=== PATIENT | male | born 1970 | race Caucasian/White ===

== ENCOUNTER 2019-03-17 03:14 | Inpatient (IN) | payer MEDICAID ==
[2019-03-17] MEDS ORDERED: Sodium Chloride 0.9% 10 ML Syringe FLUSH PRN (03:21)
[2019-03-17] MEDS ORDERED: Polyethylene Glycol 3350 Powder 17 GM Packet PO PRN (03:21)
[2019-03-17] MEDS ORDERED: Ondansetron 4 MG/2 ML SDV IV PRN (03:21)
[2019-03-17] MEDS ORDERED: Acetaminophen 325 MG Tab PO PRN (03:21)
--- NOTE | 2019-03-17 03:27 | PCM.HP ---
H&P History of Present Illness - General Date of Service: 03/17/19 Admit Problem/Dx: Admission Diagnosis/Problem Admission Diagnosis/Problem Atrial fibrillation Source of Information: Patient, Provider, RN Notes Reviewed History Limitations: Reports: No Limitations - History of Present Illness Initial Comments - Free Text/Narative: Mr. Del Rosario is a 48-year-old gentleman who was admitted as a direct admission from the emergency department in [place], with atrial fibrillation and rapid ventricular response. He was feeling well until about 2 days ago when he began to develop difficulty with breathing, shortness of breath and cough. He does have a known history of asthma and was previously hospitalized in [place] approximately 2 years ago for asthma exacerbation. He is not had fever, chills, or purulent sputum. He has a history of environmental allergies and stop taking his allergy shots a few years ago because of a severe allergic reaction. He was unable to sleep on the evening prior to admission because of shortness of breath and cough. He presented to the emergency department in [place] last night , because of symptoms of shortness of breath. On evaluation he was found to have atrial fibrillation with rapid ventricular response. He said one previous episode of atrial fibrillation occurring during his hospitalization 2 years ago. Since that hospitalization he is taken diltiazem Fleccanide on a daily basis. His main symptoms over the past 2 days of binge shortness of breath and he was unaware that his heart was beating rapidly or irregularly. He is also been told he has probable sleep apnea but has not yet had a sleep study performed. Hypertension was diagnosed 2 years ago and when he is monitored at home recently reports blood pressure has been under good control. He denies any symptoms of chest pain or pressure. Shortness of breath and cough have significantly improved after treatment in [place] with nebulizer and Solu- Medrol. - Related Data Allergies/Adverse Reactions: Allergies Allergy/AdvReac Type Severity Reaction Status Date / Time No Known Allergies Allergy Verified 03/17/19 04:00 Home Medications: Home Meds Albuterol [Ventolin HFA] 2 puff INH Q4H PRN 03/17/19 [History] Aspirin [Aspirin EC] 325 mg PO DAILY 03/17/19 [History] Flecainide [Tambocor] 150 mg PO Q12H 03/17/19 [History] Omeprazole 20 mg PO DAILY 03/17/19 [History] dilTIAZem HCl [Diltiazem ER] 360 mg PO DAILY 03/17/19 [History] H&P Review of Systems - Review of Systems: Review Of Systems: See Below General: Denies: Fever, Chills, Weakness HEENT: Reports: No Symptoms Pulmonary: Reports: Shortness of Breath, Wheezing, Cough. Denies: Pleuritic Chest Pain, Sputum, Hemoptysis Cardiovascular: Reports: Dyspnea on Exertion. Denies: Chest Pain, Palpitations , Orthopnea, PND, Edema, Lightheadedness, Syncope Gastrointestinal: Reports: No Symptoms Genitourinary: Reports: No Symptoms Musculoskeletal: Reports: No Symptoms Skin: Reports: No Symptoms Psychiatric: Reports: No Symptoms Neurological: Reports: No Symptoms Hematologic/Lymphatic: Reports: No Symptoms Immunologic: Reports: No Symptoms Exam - Exam Exam: See Below - Exam Quality Assessment: DVT Prophylaxis General: Alert, Oriented, Cooperative, Mild Distress HEENT: Conjunctiva Clear, Hearing Intact, Mucosa Moist & [place], Normal Nasal Septum, Posterior Pharynx Clear, Pupils Equal Neck: Supple, Trachea Midline, +2 Carotid Pulse wo Bruit Lungs: Decreased Breath Sounds, Wheezing. No: Crackles, Rales, Rhonchi, Rub Cardiovascular: Regular Rate, Normal S1, Normal S2, Irregular Rhythm. No: Systolic Murmur, Diastolic Murmur GI/Abdominal Exam: Soft, Non-Tender, No Organomegaly, No Distention Back Exam: Normal Inspection, Full Range of Motion Extremities: Non-Tender, No Pedal Edema Skin: Warm, Dry, Intact Neurological: Cranial Nerves Intact, Strength Equal Bilateral, Normal Speech, Normal Tone, Sensation Intact Neuro Extensive - Mental Status: Alert, Oriented x3, Normal Mood/Affect, Normal Cognition, Memory Intact *Q Meaningful Use (ADM) - VTE Risk Assess *Q Each Risk Factor Represents 1 Point: Age 41 - 59 years, Obesity ( BMI > 25 kg/m2 ) Total Score 1 Point Risk Factors: 2 Each Risk Factor Represents 2 Points: None Total Score 2 Point Risk Factors: 0 Each Risk Factor Represents 3 Points: None Total Score 3 Point Risk Factors: 0 Each Risk Factor Represents 5 Points: None Total Score 5 Point Risk Factors: 0 Venous Thromboembolism Risk Factor Score *Q: 2 Problem List Initiated/Reviewed/Updated: Yes Orders Last 24hrs: Active Orders 24 hr Category Date Time Status Patient Status [ADT] Routine ADT 03/17/19 03:21 Ordered Ambulate [RC] QID Care 03/17/19 03:21 Ordered Cardiac Monitoring [RC] .As Directed Care 03/17/19 03:23 Ordered Height and Weight [RC] DAILY Care 03/17/19 03:21 Ordered Intake and Output [RC] QSHIFT Care 03/17/19 03:21 Ordered Notify Provider Vital Signs [RC] ASDIRECTED Care 03/17/19 03:21 Ordered Oxygen Therapy [RC] PRN Care 03/17/19 03:21 Ordered Peripheral IV Care [RC] . DIRECTED Care 03/17/19 03:24 Ordered Pulse Oximetry [RC] CONTINUOUS Care 03/17/19 03:23 Ordered RT Aerosol Therapy [RC] ASDIRECTED Care 03/17/19 03:24 Ordered Up ad Tiarra [RC] ASDIRECTED Care 03/17/19 03:21 Ordered Up to Chair [RC] QID Care 03/17/19 03:21 Ordered VTE/DVT Education [RC] Per Unit Routine Care 03/17/19 03:21 Ordered Vital Signs [RC] Q4H Care 03/17/19 03:21 Ordered Nothing per Oral Now Diet [DIET] Diet 03/17/19 Breakfast Ordered Echo Comp wo Cont [US] Urgent Exams 03/17/19 08:00 Ordered BASIC METABOLIC PANEL,BMP [CHEM] AM Lab 03/17/19 05:11 Ordered CBC WITH AUTO DIFF [HEME] AM Lab 03/17/19 05:11 Ordered MAGNESIUM [CHEM] AM Lab 03/17/19 05:11 Ordered Acetaminophen [Tylenol] Med 03/17/19 03:21 Ordered 650 mg PO Q4H PRN Albuterol [Proventil Neb Soln] Med 03/17/19 03:21 Ordered 2.5 mg NEB Q4H PRN Diltiazem 125MG in NS @ 5 MG/HR(125ml) Med 03/17/19 03:30 Ordered Diltiazem 125 mg Sodium Chloride 0.9% [Normal Saline] 100 ml IV TITRATE Enoxaparin [Lovenox] Med 03/17/19 03:30 Ordered 40 mg SUBCUT DAILY Ondansetron [Zofran] Med 03/17/19 03:21 Ordered 4 mg IV Q4H PRN Polyethylene Glycol 3350 [MiraLAX] Med 03/17/19 03:21 Ordered 17 gm PO DAILY PRN Sodium Chloride 0.9% @ 125 MLS/HR (1000ml) Med 03/17/19 03:30 Ordered Sodium Chloride 0.9% [Normal Saline] 1,000 ml IV ASDIRECTED Sodium Chloride 0.9% [Saline Flush] Med 03/17/19 03:21 Ordered 10 ml FLUSH ASDIRECTED PRN Peripheral IV Insertion Adult [OM.PC] Routine Oth 03/17/19 03:21 Ordered Resuscitation Status Routine Resus Stat 03/17/19 03:21 Ordered Assessment/Plan Comment:: ASSESSMENT AND PLAN ATRIAL FIBRILLATION WITH RAPID VENTRICULAR RESPONSE-specific duration unknown, although likely that he is experienced onset over the past few days with progressive respiratory compromise. When he presented to the emergency department in [place] he was unaware that his heart rate was elevated or he was experiencing irregular rhythm. I suspect elevated rate previously related to respiratory compromise, now under better control with IV diltiazem. Calculated [id number] score is 1. -Continue daily aspirin -Continue oral diltiazem -Continuous infusion of IV diltiazem -Plan to transition to further oral rate controlling meds in a.m., consider beta rodrick therapy -Echocardiogram in a.m. ASTHMA EXACERBATION-likely secondary to environmental allergies, no evidence of underlying infection. Improved following nebulizer therapy given in [place]. -Nebulized albuterol as needed -Solu-Medrol 40 mg IV every 6 hours HYPERTENSION-blood pressures been elevated while in the emergency department and on admission. Recent history of good blood pressure control and monitored at home -Continue to monitor during hospitalization -Continue oral diltiazem PROBABLE SLEEP APNEA -Plan for outpatient monitored sleep study MAINTENANCE ISSUES -DVT prophylaxis; Lovenox 3 mg subcutaneous daily -GI prophylaxis; continue outpatient PPI therapy -Gates catheter; not indicated -Nutrition; 2 g sodium diet -Nicotine dependence; not required CODE STATUS-FULL CODE ADMISSION STATUS-patient will be admitted to inpatient status, expect at least a 2 night hospital stay for evaluation and management of problems as outlined above. At the time of this admission I do not reasonably expected evaluation and management of this problem will require more than a 96 hour hospital stay. DISPOSITION-anticipate discharge to home after the hospital stay. PRIMARY CARE PROVIDER-he recently moved to this area and has not established care with a primary care provider.
[2019-03-17] MEDS ORDERED: Enoxaparin 40 MG/0.4 ML Syringe SUBCUT SCH ×2 (03:30→21:00)
[2019-03-17] MEDS ORDERED: Sodium Chloride 0.9% 1,000 ML IV SCH (03:30)
[2019-03-17] MEDS ORDERED: Diltiazem 125 MG in Sodium Chloride 0.9% 100 ML IV SCH (03:30)
[2019-03-17] MEDS: methylPREDNISolone Sodium Succinate 40 MG/1 ML SDV IVPUSH SCH ×4 (04:20→21:17)
[2019-03-17] MEDS: Albuterol 0.083% 2.5 MG/3 ML Neb Soln NEB PRN ×5 (04:22→22:11)
[2019-03-17] MEDS: Flecainide 50 MG Tab PO SCH ×2 (10:04→21:11)
[2019-03-17] MEDS: Aspirin 325 MG Tab.EC PO SCH (10:04)
[2019-03-17] MEDS: Diltiazem 180 MG Cap.CD PO SCH (10:05)
[2019-03-17] MEDS: Pantoprazole 40 MG Tab.CR PO SCH (10:05)
[2019-03-18] MEDS: methylPREDNISolone Sodium Succinate 40 MG/1 ML SDV IVPUSH SCH ×2 (04:28→10:15)
[2019-03-18] MEDS: Pantoprazole 40 MG Tab.CR PO SCH (07:28)
[2019-03-18] MEDS: Albuterol 0.083% 2.5 MG/3 ML Neb Soln NEB PRN (07:30)
[2019-03-18] MEDS: Aspirin 325 MG Tab.EC PO SCH (08:08)
[2019-03-18] MEDS: Diltiazem 180 MG Cap.CD PO SCH (08:08)
[2019-03-18] MEDS: Flecainide 50 MG Tab PO SCH (08:08)
--- NOTE | 2019-03-18 10:02 | PCM.DCSUM1 ---
Discharge Summary - Hospital Course Brief History: Mr. Del Rosario is a 48-year-old gentleman who was admitted as a direct admission from the emergency department in [place] with shortness of breath secondary to asthma exacerbation and underlying viral upper respiratory tract infection as well as atrial fibrillation with rapid ventricular response. Diagnosis: Stroke: No - Discharge Data Discharge Date: 03/18/19 Discharge Disposition: Home, Self-Care 01 Condition: Fair - Discharge Diagnosis/Problem(s) (1) Hypoxia SNOMED Code(s): 662060562 ICD Code: R09.02 - HYPOXEMIA Status: Acute Current Visit: Yes (2) Asthma with acute exacerbation SNOMED Code(s): 995219065 ICD Code: J45.901 - UNSPECIFIED ASTHMA WITH (ACUTE) EXACERBATION Status: Acute Current Visit: Yes (3) Viral upper respiratory infection SNOMED Code(s): 323710750 ICD Code: J06.9 - ACUTE UPPER RESPIRATORY INFECTION, UNSPECIFIED Status: Acute Current Visit: Yes (4) Atrial fibrillation with RVR SNOMED Code(s): 360777452964018 ICD Code: I48.91 - UNSPECIFIED ATRIAL FIBRILLATION Status: Acute Current Visit: Yes - Patient Summary/Data Hospital Course: Mr. Del Rosario is a 48-year-old gentleman who was admitted as a direct admission from the emergency department in [place], with atrial fibrillation and rapid ventricular response. He was feeling well until about 2 days ago when he began to develop difficulty with breathing, shortness of breath and cough. He does have a known history of asthma and was previously hospitalized in [place] approximately 2 years ago for asthma exacerbation. He is not had fever, chills, or purulent sputum. He has a history of environmental allergies and stop taking his allergy shots a few years ago because of a severe allergic reaction. He was unable to sleep on the evening prior to admission because of shortness of breath and cough. He presented to the emergency department in [place] last night , because of symptoms of shortness of breath. On evaluation he was found to have atrial fibrillation with rapid ventricular response. He said one previous episode of atrial fibrillation occurring during his hospitalization 2 years ago. Since that hospitalization he is taken diltiazem Fleccanide on a daily basis. His main symptoms over the past 2 days of binge shortness of breath and he was unaware that his heart was beating rapidly or irregularly. He is also been told he has probable sleep apnea but has not yet had a sleep study performed. Hypertension was diagnosed 2 years ago and when he is monitored at home recently reports blood pressure has been under good control. He denies any symptoms of chest pain or pressure. Shortness of breath and cough have significantly improved after treatment in [place] with nebulizer and Solu- Medrol. On admission he was continued on nebulizer therapy as well as IV Solu-Medrol. It became clear after admission that his elevated heart rate was likely secondary to hypoxia and respiratory compromise. He was continued on the IV diltiazem until later in the morning and was then placed back on his usual dose of oral diltiazem as well as flecainide. His heart rate remained under good control during the duration of his hospital stay. It was unclear as to when the atrial fibrillation and started and I think it's very likely that he has been in this for some time, with the increased rate related to respiratory distress. He will be discharged to home on his usual medications for the atrial fibrillation. A [id number] was calculated for him and the results was a score of 1. He will remain on aspirin 325 mg daily, but was not started on any other anticoagulation. He has inhalers to use at home for management of his asthma and will be discharged on prednisone 40 mg daily for an additional 3 days. It was felt likely that his asthma exacerbation was caused by a viral upper respiratory tract infection. Follow-up appointment will be arranged with primary care and he should also be scheduled for a cardiology consult for ongoing management of his atrial fibrillation. Echocardiogram was obtained and showed preserved left ventricular function, left ventricular hypertrophy, and diastolic dysfunction. He was noted to have evidence of sleep apnea while monitored during hospitalization and I have recommended that he discuss this with primary care provider and have an outpatient sleep study scheduled. Activity will be as tolerated and he will resume his usual diet. - Patient Instructions Diet: Low Sodium Activity: As Tolerated Other/Special Instructions: Please schedule follow-up appointment with primary care provider within one week. Please schedule cardiology consult for follow-up of atrial fibrillation. Patient has been instructed that he needs to discuss with primary care provider his sleep apnea and get an outpatient sleep study scheduled. - Discharge Plan *PRESCRIPTION DRUG MONITORING PROGRAM REVIEWED*: Not Applicable *COPY OF PRESCRIPTION DRUG MONITORING REPORT IN PATIENT PRECIOUS: Not Applicable Prescriptions/Med Rec: Diltiazem HCl [Diltiazem 24Hr Cd] 180 mg PO DAILY #60 cap.er.24h Flecainide [Tambocor] 50 mg PO Q12H #180 tab predniSONE [Prednisone] 20 mg PO DAILY #6 tablet Home Medications: Home Meds Albuterol [Ventolin HFA] 2 puff INH Q4H PRN 03/17/19 [History] Aspirin [Aspirin EC] 325 mg PO DAILY 03/17/19 [History] Flecainide [Tambocor] 150 mg PO Q12H 03/17/19 [History] Omeprazole 20 mg PO DAILY 03/17/19 [History] dilTIAZem HCl [Diltiazem 24Hr ER (LA)] 360 mg PO DAILY 03/17/19 [History] Diltiazem HCl [Diltiazem 24Hr Cd] 180 mg PO DAILY #60 cap.er.24h 03/18/19 [Rx] Flecainide [Tambocor] 50 mg PO Q12H #180 tab 03/18/19 [Rx] predniSONE [Prednisone] 20 mg PO DAILY #6 tablet 03/18/19 [Rx] - Discharge Summary/Plan Comment DC Time >30 min.: No - Patient Data Vitals - Most Recent: Last Vital Signs Temp 94.9 F L 03/18/19 07:00 Pulse 89 03/18/19 07:00 Resp 16 03/18/19 07:00 BP 114/92 H 03/18/19 07:00 Pulse Ox 96 03/18/19 07:00 Weight - Most Recent: 374 lb 6.4 oz Med Orders - Current: Current Medications Acetaminophen (Tylenol) 650 mg PO Q4H PRN PRN Reason: Pain (Mild 1-3)/fever Albuterol (Proventil Neb Soln) 2.5 mg NEB Q4H PRN PRN Reason: Shortness Of Breath/wheezing Last Admin: 03/18/19 07:30 Dose: 2.5 mg Aspirin (Ecotrin) 325 mg PO DAILY [facility] Last Admin: 03/18/19 08:08 Dose: 325 mg Diltiazem HCl (Cardizem Cd) 360 mg PO DAILY [facility] Last Admin: 03/18/19 08:08 Dose: 360 mg Enoxaparin Sodium (Lovenox) 40 mg SUBCUT DAILY@2100 [facility] Last Admin: 03/17/19 21:11 Dose: 40 mg Flecainide Acetate (Tambocor) 150 mg PO BID [facility] Last Admin: 03/18/19 08:08 Dose: 150 mg Methylprednisolone Sodium Succinate (Solu-Medrol) 40 mg IVPUSH Q6H [facility] Last Admin: 03/18/19 04:28 Dose: 40 mg Ondansetron HCl (Zofran) 4 mg IV Q4H PRN PRN Reason: Nausea/Vomiting Pantoprazole Sodium (Protonix) 40 mg PO ACBREAKFAST [facility] Last Admin: 03/18/19 07:28 Dose: 40 mg Polyethylene Glycol (Miralax) 17 gm PO DAILY PRN PRN Reason: Constipation Sodium Chloride (Saline Flush) 10 ml FLUSH ASDIRECTED PRN PRN Reason: Keep Vein Open Last Admin: 03/17/19 21:17 Dose: 10 ml Discontinued Medications Enoxaparin Sodium (Lovenox) 40 mg SUBCUT DAILY [facility] Stop: 03/17/19 03:31 Last Admin: 03/17/19 04:22 Dose: 40 mg Diltiazem HCl 125 mg/ Sodium (Chloride) 125 mls @ 5 mls/hr IV TITRATE DARREL; Protocol Sodium Chloride (Normal Saline) 1,000 mls @ 125 mls/hr IV ASDIRECTED [facility] Last Admin: 03/17/19 04:11 Dose: 125 mls/hr - Exam Quality Assessment: Reports: DVT Prophylaxis General: Reports: Alert, Oriented, Cooperative, Mild Distress Lungs: Reports: Normal Respiratory Effort, Wheezing. Denies: Rales, Rhonchi, Rub Cardiovascular: Reports: Regular Rate, No Murmurs, Irregular Rhythm GI/Abdominal Exam: Soft, Non-Tender, No Organomegaly, No Distention
== END 2019-03-18 11:52 | disposition home or self-care (01) | DRG 309 ==
LOC: JP.ICU 03:14
PROVIDERS: ADMIT Hospitalist; ATTEND Hospitalist
DX: I48.91 Unspecified atrial fibrillation (principal); J45.901 Unspecified asthma with (acute) exacerbation; J06.9 Acute upper respiratory infection, unspecified; R09.02 Hypoxemia; G47.30 Sleep apnea, unspecified; Z79.82 Long term (current) use of aspirin; Z79.899 Other long term (current) drug therapy; Z91.048 Other nonmedicinal substance allergy status
CPT/HCPCS: 36415; 80048; 83735; 85025; 93306; 94640; A9270-GY; J1650; J2920; J7030